=== PATIENT | female | born 1960 | race Caucasian/White ===

== ENCOUNTER → 2019-05-11 | Outpatient (CLI) | payer OTHER ==
[2019-05-11 10:22] LABS: HCT 41.9 % (34.0-46.0); MCH 30.7 pg (25.0-35.0); MCHC 33.5 g/dL (31.0-37.0); MCV 91.6 fL (80.0-100.0); Mean Platelet Volume 8.7; Platelet Count 215 k/uL (150-450); RBC 4.57 m/uL (3.80-5.40); RDW 13.5 % (11.5-15.5); WBC 8.8 k/uL (3.8-10.6)
[2019-05-11 16:50] LABS: African American GFR (CKD) 72.9 (60.0-200.0); Anion Gap 7.5 mmol/L (4.00-12.00); Carbon Dioxide 26.5 mmol/L (21.6-31.8); Chol/HDL Ratio 5.1; Potassium 4.6 mmol/L (3.5-5.5)
== END | disposition home or self-care (01) ==
LOC: LABWHC1 09:36
PROVIDERS: ATTEND Internal Medicine Cardiovascular Disease
DX: E78.2 Mixed hyperlipidemia (principal); I42.9 Cardiomyopathy, unspecified
CPT/HCPCS: 36415; 80051; 80061; 82565; 84450; 84460; 84520; 85027

== ENCOUNTER → 2019-05-13 | Day surgery (SDC) | payer OTHER ==
[2019-05-11 14:23] VITALS: BMI 40.5
[~2019-05-13] MED LIST: ADENOSINE 90 MG in SODIUM CHLORIDE 0.9% 60 ML IVP ONE; ALPRAZolam 0.25 MG TAB PO PRN; ALPRAZolam 0.5 MG TAB PO PRN; ASPIRIN 325 MG TAB PO ONE; ATORVASTATIN 40 MG TAB PO SCH; ATORVASTATIN 80 MG TAB PO ONE; ATORVASTATIN 80 MG TAB PO SCH; HEPARIN SODIUM 1,000 UN/ML (10ML VL) IV ONE; IOPAMIDOL-370 125ML BTL INJ ONE; LIDOCAINE 1% INJ 10MG/ML (20 ML MDV) SQ ONE; LISINOPRIL 2.5 MG TAB PO SCH; METOPROLOL SUCCINATE (ER) 25 MG TAB.ER.24H PO SCH; MIDAZOLAM (PF) 2 MG/2 ML VIAL IVP ONE; NITROGLYCERIN 1000MCG/10ML SYRINGE INTRACORON ONE; NITROGLYCERIN SL TABS 0.4 MG TAB SUBLINGUAL PRN; NON FORMULARY DRUG (Aspirin [Adult Low Dose Aspirin Ec] 81 MG) PO SCH; RX INFO: IV CONTRAST WAS GIVEN 1 EACH MISC MISCELLANE PRN; SODIUM CHLORIDE 0.9% 1,000 ML IV ONE; SODIUM CHLORIDE 0.9% 1,000 ML IV SCH; SODIUM CHLORIDE 0.9% 1,000 ML in EMPTY BAG 1 BAG IV ONE; fentaNYL (PF) 50 MCG/ML 2 ML AMP IVP ONE
[2019-05-13 07:04] VITALS: RESP 16; TEMP 97.8
--- NOTE | 2019-05-13 08:36 | CC ---
CARDIAC CATHETERIZATION REPORT INDICATION: Cardiomyopathy with abnormal stress test. PROCEDURE NOTE: After obtaining informed consent, left heart catheterization and coronary angiogram are performed via the right femoral artery using standard Val catheters. Patient tolerated the procedure well without any obvious immediate complications. Patient received moderate conscious sedation. Total sedation time was 12 minutes. A femoral angiogram was obtained and Angio-Seal will be deployed for hemostasis. FINDINGS: 1. HEMODYNAMICS: Left ventricular end-diastolic pressure is 24 mm. There is no significant gradient across the aortic valve. 2. LEFT VENTRICULOGRAM: Left ventriculogram is not performed. 3. ANGIOGRAPHIC DATA: Left Main Coronary Artery: Left main coronary artery is a normal-sized vessel and is free of stenosis. Divides into left anterior descending coronary artery and circumflex coronary artery. Circumflex coronary artery is a large dominant vessel and is free of significant stenosis. The LAD appears heavily calcified in its proximal part with irregular ectatic areas. This is new compared to a cardiac catheterization done in 2013 and there seems to be a 50% to 60% stenosis. Right coronary artery is a small caliber vessel, nondominant and is free of significant stenosis. CONCLUSIONS: Moderate to severe stenosis involving proximal left anterior descending artery a heavily calcified segment. PLAN: I am going to review the data with the on-call antisqueak chalker to see if the patient will have an FFR or have stent. We will optimize her medical therapy and optimally control the blood pressure. MMODL / IJN: [id number] /
--- NOTE | 2019-05-13 09:18 | PCN ---
PROCEDURE NOTE FRACTIONAL FLOW RESERVE MEASUREMENT Mrs. Ellis is a 58-year-old female, followed by Dr. Velásquez who is scheduled to undergo surgery underwent myocardial perfusion imaging that revealed evidence of inducible ischemia with impairment of left ventricular systolic function. She underwent cardiac catheterization, was found to have a calcified left anterior descending artery with moderate disease in the mid LAD. Because of the results of her stress test and her anatomy, recommendation was made regarding physiological measurement evaluation of her lesion. The procedure, the risks and the complications were discussed with the patient who is in full understanding and agreement. PROCEDURE: A 6-Albanian FR4 guiding catheter introduced in the system. After cannulating the left main a Doppler flow wire volcano was introduced, positioned distally. Subsequently, an iFR was calculated. Following that an FFR was calculated using adenosine infusion per protocol. Following that, catheter and sheath were removed. Hemostasis was obtained with deployment of an Angio-Seal. There was no immediate complication. Patient was returned to her room in stable condition. Of note, the patient received 5000 units of intravenous heparin. RESULT: Non-hemodynamic significant lesion in the mid LAD with an FFR of 84% and an iFR of 96%. RECOMMENDATION: Patient will be continued on her medical therapy. She will be further evaluated by Dr. Velásquez. Those findings and recommendations were discussed with the patient and her family and are in full understanding and agreement. DURATION OF PROCEDURE: 12 minutes. NARCISAL / LUCRETIAN: [id number] /
[2019-05-13 14:32] VITALS: BP 126/82; PULSE 76
== END | disposition home or self-care (01) ==
LOC: CATHCVL 06:19
PROVIDERS: ATTEND Internal Medicine Cardiovascular Disease
DX: I25.10 Atherosclerotic heart disease of native coronary artery without angina pectoris (principal); I25.84 Coronary atherosclerosis due to calcified coronary lesion; I42.9 Cardiomyopathy, unspecified; I10 Essential (primary) hypertension; E11.9 Type 2 diabetes mellitus without complications; E78.5 Hyperlipidemia, unspecified; Z79.82 Long term (current) use of aspirin; Z79.899 Other long term (current) drug therapy; Z87.891 Personal history of nicotine dependence; Z82.49 Family history of ischemic heart disease and other diseases of the circulatory system
CPT/HCPCS: 93571; 93458; C1760; C1887; C1894; C1769; J2001; J3010; J1644; J0153; Q9967; J2250

== ENCOUNTER → 2019-11-08 | Outpatient (CLI) | payer OTHER ==
[2019-11-08 16:10] LABS: HCT 44.9 % (34.0-46.0); HGB 14.7 gm/dL (11.4-16.0); MCH 29.6 pg (25.0-35.0); MCHC 32.7 g/dL (31.0-37.0); MCV 90.6 fL (80.0-100.0); Mean Platelet Volume 9.6; Platelet Count 232 k/uL (150-450); RBC 4.95 m/uL (3.80-5.40); RDW 13.3 % (11.5-15.5); WBC 12.7 k/uL (3.8-10.6)
[2019-11-08 16:16] LABS: African American GFR (CKD) >90 (>60 ml/min/1.73 sqM); Anion Gap 9 mmol/L; Blood Urea Nitrogen 18 mg/dL (7-17); Carbon Dioxide 25 mmol/L (22-30); Chloride 103 mmol/L (98-107); Non-African American GFR(CKD) 79 (>60 ml/min/1.73 sqM); Potassium 4.4 mmol/L (3.5-5.1); Sodium 137 mmol/L (137-145)
== END | disposition home or self-care (01) ==
LOC: LABPAT 14:57
PROVIDERS: ATTEND Internal Medicine Cardiovascular Disease
DX: Z01.818 Encounter for other preprocedural examination (principal); I42.0 Dilated cardiomyopathy
CPT/HCPCS: 80051; 82565; 84520; 85027

== ENCOUNTER 2019-11-24 06:04 | Day surgery (SDC) | payer OTHER ==
[2019-11-23 11:43] VITALS: BMI 37.5
[~2019-11-24 06:04] MED LIST changes: -ADENOSINE 90 MG in SODIUM CHLORIDE 0.9% 60 ML IVP ONE; -ALPRAZolam 0.25 MG TAB PO PRN; -ALPRAZolam 0.5 MG TAB PO PRN; -ASPIRIN 325 MG TAB PO ONE; -ATORVASTATIN 40 MG TAB PO SCH; -ATORVASTATIN 80 MG TAB PO ONE; -ATORVASTATIN 80 MG TAB PO SCH; -HEPARIN SODIUM 1,000 UN/ML (10ML VL) IV ONE; -IOPAMIDOL-370 125ML BTL INJ ONE; -LIDOCAINE 1% INJ 10MG/ML (20 ML MDV) SQ ONE; -LISINOPRIL 2.5 MG TAB PO SCH; -METOPROLOL SUCCINATE (ER) 25 MG TAB.ER.24H PO SCH; -MIDAZOLAM (PF) 2 MG/2 ML VIAL IVP ONE; -NITROGLYCERIN 1000MCG/10ML SYRINGE INTRACORON ONE; -NITROGLYCERIN SL TABS 0.4 MG TAB SUBLINGUAL PRN; -NON FORMULARY DRUG (Aspirin [Adult Low Dose Aspirin Ec] 81 MG) PO SCH; -RX INFO: IV CONTRAST WAS GIVEN 1 EACH MISC MISCELLANE PRN; -SODIUM CHLORIDE 0.9% 1,000 ML IV ONE; -SODIUM CHLORIDE 0.9% 1,000 ML in EMPTY BAG 1 BAG IV ONE; -fentaNYL (PF) 50 MCG/ML 2 ML AMP IVP ONE
[2019-11-24 06:22] VITALS: TEMP 98
[2019-11-24 06:34] LABS: Glucose,Whole Blood 179 mg/dL (75-99)
[2019-11-24] MEDS ORDERED: MIDAZOLAM 2 MG/2 ML VIAL IVP ONE (07:00)
[2019-11-24] MEDS ORDERED: ceFAZolin 1,000 MG in SODIUM CHLORIDE 0.9% IRRIGATIO 250 ML IRRIGATION ONE (07:00)
[2019-11-24] MEDS ORDERED: KETAMINE 10 MG/ML 20 ML VIAL ONE (07:19)
[2019-11-24] MEDS ORDERED: .MORPHINE SULFATE (INJ) 10 MG/ML SYRINGE ONE (07:19)
[2019-11-24] MEDS ORDERED: fentaNYL (PF) 50 MCG/ML 2 ML AMP ONE (07:19)
[2019-11-24] MEDS ORDERED: MIDAZOLAM 2 MG/2 ML VIAL ONE (07:19)
[2019-11-24] MEDS ORDERED: ONDANSETRON 4 MG/2 ML VIAL ONE (07:19)
[2019-11-24] MEDS ORDERED: IOPAMIDOL-250 50ML BTL IV ONE (07:45)
[2019-11-24] MEDS ORDERED: LIDOCAINE 1% INJ 10MG/ML (20 ML MDV) SQ ONE ×2 (08:07→08:18)
[2019-11-24] MEDS ORDERED: ACETAMINOPHEN TAB 325 MG TAB PO PRN (09:37)
--- NOTE | 2019-11-24 09:42 | P.DS ---
Providers Attending physician: Romie Barajas Primary care physician: [place] [facility] Course: Discharge summary 59-year-old female who underwent single-chamber ICD for primary prevention of sudden cardiac . She will be discharged home at 2:30 PM if her chest x-ray 12 known is within normal limits and she'll receive antibiotics at 2 PM and his hemodynamic stable. She'll be seen in the office in 5 days Patient Condition at Discharge: Stable Plan - Discharge Summary Discharge Rx Participant: No New Discharge Prescriptions: Continue Aspirin [Adult Low Dose Aspirin EC] 81 mg PO DAILY Lisinopril [Zestril] 2.5 mg PO DAILY Atorvastatin [Lipitor] 40 mg PO HS #90 tablet Metoprolol Succinate (ER) [Toprol XL] 25 mg PO DAILY #90 tab metFORMIN HCL [Glucophage] 500 mg PO AC-TID Discharge Medication List Aspirin [Adult Low Dose Aspirin EC] 81 mg PO DAILY 05/11/19 [History] Lisinopril [Zestril] 2.5 mg PO DAILY 05/11/19 [History] Atorvastatin [Lipitor] 40 mg PO HS #90 tablet 05/13/19 [Rx] Metoprolol Succinate (ER) [Toprol XL] 25 mg PO DAILY #90 tab 05/13/19 [Rx] metFORMIN HCL [Glucophage] 500 mg PO AC-TID 11/23/19 [History] Follow up Appointment(s)/Referral(s): Niall Velásquez MD [STAFF PHYSICIAN] - 1 Week (X-ray 12 noon Antibiotics at 2 PM Afebrile be stable and exit is okay then discharged back to 30 p.m. [facility] Follow-up with Dr. Nevarez as previously scheduled) Patient Instructions/Handouts: Implantable Cardioverter Defibrillator (DC) Discharge Disposition: HOME SELF-CARE
[2019-11-24 09:47] VITALS: RESP 16
--- NOTE | 2019-11-24 10:09 | CE ---
CARDIAC ELECTROPHYSIOLOGY REPORT This is a 59-year-old female patient of Dr. Velásquez who has severe nonischemic cardiomyopathy which is not improved despite medical treatment for greater than 3 months. She has CHF class 2 and a narrow QRS. She was brought in for single-chamber ICD implantation, primary prevention. The patient is brought to the EP lab in a fasting state. Written informed consent was obtained prior to the procedure. The left shoulder area was prepped and draped as per protocol and 1% lidocaine was used for local anesthesia. A 4 cm incision was made parallel to the deltopectoral groove, about 1.5 cm medial to it. The incision was carried down to the level of the pectoralis muscle. A subfascial pocket was made. Hemostasis was assured. The left axillary vein was accessed at a single point under fluoroscopy and via appropriately-sized introducer sheaths, a single lead was positioned in the right ventricle just above the RV apex and screwed in. R-waves were 13.5 mV, pacing impedance 1375 ohms, pacing threshold 1 V at 0.5 milliseconds, high- voltage impedance 90 ohms. This was secured to the underlying pectoralis muscle and connected to the generator (Ellipse VR [id number], serial #[id number]. The lead and generator were then placed in subfascial pocket. The device was secured to the muscle and the wound was closed in 3 layers and dressed per protocol. DFT testing was deferred at this point. The implanted lead was an [employer], model number [id number], 65 cm in length and serial #[id number]. Patient tolerated the procedure well without any acute complications and it was programmed according to the [employer] programming with backup VVI pacing at 40 beats per minute. No changes in medications. PLAN: Intravenous antibiotics at 2 p.m., chest x-ray at 12 noon and if stable, then home today and follow up in the office in 5 days. LEFT UPPER EXTREMITY VENOGRAM: The 15 mL IV dye was injected into the left upper extremity and the left axillary and subclavian veins were well opacified and were noted to be widely patent. MMODL / IJN: [id number] /
[2019-11-24] MEDS ORDERED: ACETAMINOPHEN IV (For NPO) 1,000 MG in EMPTY BAG 1 BAG IVPB ONE (11:00)
[2019-11-24] MEDS ORDERED: LACTATED RINGERS 1,000 ML IV SCH (12:03)
--- NOTE | 2019-11-24 12:18 | XR ---
EXAMINATION TYPE: XR chest 1V portable DATE OF EXAM: 11/24/2019 COMPARISON: NONE HISTORY: Implantable cardiac device. Postoperative exam. TECHNIQUE: Single frontal view of the chest is obtained. FINDINGS: Angle lead left-sided cardiac device has a ventricular lead. No postprocedural pneumothora x seen on this single view pericardial mediastinal silhouette is enlarged. Soft tissues partially sec ure the lower lungs. No sizable pleural effusion. IMPRESSION: Single lead left-sided cardiac device with a single ventricular lead. No postprocedural pneumothorax seen.
[2019-11-24 14:35] VITALS: BP 104/59; PULSE 73
== END 2019-11-24 16:23 | disposition home or self-care (01) ==
LOC: CATHEP 06:04
PROVIDERS: ATTEND Internal Medicine Clinical Cardiac Electrophysiology
DX: I42.9 Cardiomyopathy, unspecified (principal); I25.10 Atherosclerotic heart disease of native coronary artery without angina pectoris; I11.0 Hypertensive heart disease with heart failure; I50.9 Heart failure, unspecified; E78.2 Mixed hyperlipidemia; E11.9 Type 2 diabetes mellitus without complications; Z87.891 Personal history of nicotine dependence; Z79.82 Long term (current) use of aspirin; Z79.84 Long term (current) use of oral hypoglycemic drugs; Z79.899 Other long term (current) drug therapy; Z90.710 Acquired absence of both cervix and uterus; Z98.890 Other specified postprocedural states; Z82.49 Family history of ischemic heart disease and other diseases of the circulatory system
CPT/HCPCS: 33249; 71045; C1892; C1769; C1722; C1777; J2250; J2270; J0690 ×2; J2405; J2001; J3010; Q9966

== ENCOUNTER → 2020-01-26 | Outpatient (CLI) | payer OTHER ==
[2020-01-26 15:13] LABS: HCT 42.6 % (34.0-46.0); HGB 13.5 gm/dL (11.4-16.0); MCH 29.1 pg (25.0-35.0); MCHC 31.8 g/dL (31.0-37.0); MCV 91.5 fL (80.0-100.0); Platelet Count 245 k/uL (150-450); RBC 4.65 m/uL (3.80-5.40); RDW 13.5 % (11.5-15.5); WBC 12.3 k/uL (3.8-10.6)
[2020-01-27 00:08] LABS: African American GFR (CKD) 72.4 (60.0-200.0); Anion Gap 9.6 mmol/L (4.00-12.00); Carbon Dioxide 28.4 mmol/L (21.6-31.8); Non-African American GFR(CKD) 62.5 (60.0-200.0); Potassium 4.2 mmol/L (3.5-5.5)
== END | disposition home or self-care (01) ==
LOC: LABWHC1 14:44
PROVIDERS: ATTEND Internal Medicine Cardiovascular Disease
DX: I50.22 Chronic systolic (congestive) heart failure (principal)
CPT/HCPCS: 36415; 80051; 82565; 83880; 84443; 84520; 85027

== ENCOUNTER → 2021-11-13 | Outpatient (CLI) | payer OTHER ==
[2021-11-14 00:04] LABS: Anion Gap 13.5 mmol/L (10.00-18.00); Carbon Dioxide 26.5 mmol/L (20.0-27.5); Potassium 4.3 mmol/L (3.5-5.5)
== END | disposition home or self-care (01) ==
LOC: LABWHC1 15:53
PROVIDERS: ATTEND Nurse Practitioner Family
DX: I25.10 Atherosclerotic heart disease of native coronary artery without angina pectoris (principal); I42.0 Dilated cardiomyopathy; I48.0 Paroxysmal atrial fibrillation; I50.22 Chronic systolic (congestive) heart failure
CPT/HCPCS: 36415; 80051; 83880

== ENCOUNTER 2022-01-07 16:07 | Emergency (ER) | payer OTHER ==
[2022-01-07 16:23] VITALS: RESP 18
--- NOTE | 2022-01-07 20:04 | ED ---
General Adult HPI - General Chief complaint: Recheck/Abnormal Lab/Rx Stated complaint: ABN labs Time Seen by Provider: 01/07/22 19:58 Source: patient, RN notes reviewed, old records reviewed Mode of arrival: ambulatory Limitations: no limitations - History of Present Illness Initial comments: This is a pleasant 61-year-old female that was sent to the emergency room by her primary care doctor for hemoglobin that was drawn today of 7.4. She did see her primary care doctor on Thursday last week when it was 7.7. She was hospitalized at [facility] for low hemoglobin and was given a blood transfusion of 1 unit. She states that she initially went to [facility] with numbness and tingling in her arms was diagnosed with a TIA and sent to [facility]. At that time they found that her hemoglobin was low with no evidence of source of GI bleeding. She did undergo a endoscopy and colonoscopy that were negative. She was discharged home to follow up with her primary care doctor. Patient denies any hematuria, hematochezia or hematemesis. She denies any abdominal pain. No shortness of breath. -: week(s) Severity scale (1-10): 0 Associated Symptoms: denies other symptoms Treatments Prior to Arrival: none - Related Data Home Medications Medication Instructions Recorded Confirmed Aspirin [Adult Low Dose Aspirin EC] 81 mg PO DAILY 05/11/19 01/07/22 lisinopriL [Zestril] 2.5 mg PO DIRECTED 05/11/19 01/07/22 metFORMIN HCL [Glucophage] 1,000 mg PO BID 11/23/19 01/07/22 Albuterol Inhaler [Ventolin Hfa 2 puff INHALATION RT-QID PRN 01/07/22 01/07/22 Inhaler] Apixaban [Eliquis] 5 mg PO BID 01/07/22 01/07/22 Furosemide [Lasix] 40 mg PO DIRECTED 01/07/22 01/07/22 Metoprolol Succinate (ER) [Toprol 100 mg PO DAILY 01/07/22 01/07/22 Xl] Pantoprazole Sodium 40 mg PO BID 01/07/22 01/07/22 Potassium Chloride ER [K-Dur 20] 20 meq PO DIRECTED 01/07/22 01/07/22 glipiZIDE XL [Glucotrol Xl] 10 mg PO DAILY 01/07/22 01/07/22 metOLazone [Zaroxolyn] 2.5 mg PO DIRECTED 01/07/22 01/07/22 Previous Rx's Medication Instructions Recorded Atorvastatin [Lipitor] 40 mg PO HS #90 tablet 05/13/19 Allergies Allergy/AdvReac Type Severity Reaction Status Date / Time adhesive tape Allergy Rash/Hives Verified 01/07/22 20:40 Review of Systems ROS Statement: Those systems with pertinent positive or pertinent negative responses have been documented in the HPI. ROS Other: All systems not noted in ROS Statement are negative. Past Medical History Past Medical History: Asthma, Diabetes Mellitus, Hypertension Additional Past Medical History / Comment(s): migraines, irregular heartbeat, Seasonal asthma (no rx) . See Cardiology H & P. History of Any Multi-Drug Resistant Organisms: None Reported Past Surgical History: Appendectomy, Cholecystectomy, Heart Catheterization, Hernia Repair, Hysterectomy, Orthopedic Surgery Additional Past Surgical History / Comment(s): bunionectomy left foot, repair ACL Past Anesthesia/Blood Transfusion Reactions: No Reported Reaction Past Psychological History: No Psychological Hx Reported Smoking Status: Former smoker Past Alcohol Use History: Occasional Past Drug Use History: None Reported - Past Family History Father Family Medical History: Cancer Additional Family Medical History / Comment(s): colon Mother Family Medical History: Cancer Additional Family Medical History / Comment(s): breast General Exam Limitations: no limitations General appearance: alert, in no apparent distress Head exam: Present: atraumatic Eye exam: Present: normal appearance, other (Conjunctiva are pink). Absent: scleral icterus, conjunctival injection ENT exam: Present: normal exam, normal oropharynx, mucous membranes moist Neck exam: Present: full ROM. Absent: tenderness, meningismus Respiratory exam: Present: normal lung sounds bilaterally. Absent: respiratory distress, wheezes, rales, rhonchi, stridor, chest wall tenderness, accessory muscle use, decreased breath sounds Cardiovascular Exam: Present: regular rate GI/Abdominal exam: Present: soft. Absent: distended, tenderness Extremities exam: Present: full ROM, normal capillary refill, pedal edema (Trace bilateral). Absent: tenderness Back exam: Present: normal inspection, full ROM. Absent: tenderness, CVA tenderness (R), CVA tenderness (L), rash noted Neurological exam: Present: alert, oriented X3, normal gait Psychiatric exam: Present: normal affect, normal mood Skin exam: Present: warm, dry, normal color. Absent: cyanosis, diaphoretic, erythema, petechiae, pallor Course Vital Signs 01/07/22 01/07/22 01/07/22 16:21 20:56 21:35 Temperature 98.2 F 98.9 F Pulse Rate 96 89 Respiratory 18 18 18 Rate Blood Pressure 139/81 130/78 O2 Sat by Pulse 98 98 Oximetry Medical Decision Making - Medical Decision Making Hemoglobin is 8.0. Patient has denied hematochezia or hematemesis. No abdominal pain. Vital signs are stable. She will follow-up with her primary care doctor tomorrow for continuation of care. Patient is agreeable to disch arge. Case discussed with Dr. Roman - Lab Data Result diagrams: 01/07/22 20:32 01/07/22 20:32 Lab Results 01/07/22 01/07/22 01/07/22 Range/Units 20:32 20:32 20:32 WBC 10.3 (3.8-10.6) k/uL RBC 3.03 L (3.80-5.40) m/uL Hgb 8.0 L (11.4-16.0) gm/dL Hct 25.9 L (34.0-46.0) % MCV 85.4 (80.0-100.0) fL MCH 26.3 (25.0-35.0) pg MCHC 30.8 L (31.0-37.0) g/dL RDW 15.1 (11.5-15.5) % Plt Count 404 (150-450) k/uL MPV 8.1 Neutrophils % 65 % Lymphocytes % 25 % Monocytes % 5 % Eosinophils % 3 % Basophils % 1 % Neutrophils # 6.7 (1.3-7.7) k/uL Lymphocytes # 2.6 (1.0-4.8) k/uL Monocytes # 0.5 (0-1.0) k/uL Eosinophils # 0.3 (0-0.7) k/uL Basophils # 0.1 (0-0.2) k/uL Hypochromasia Slight PT (9.0-12.0) sec INR (<1.2) APTT (22.0-30.0) sec Sodium 139 (137-145) mmol/L Potassium 4.6 (3.5-5.1) mmol/L Chloride 106 (98-107) mmol/L Carbon Dioxide 23 (22-30) mmol/L Anion Gap 10 mmol/L BUN 16 (7-17) mg/dL Creatinine 0.97 (0.52-1.04) mg/dL Est GFR (CKD-EPI)AfAm 74 (>60 ml/min/1.73 sqM) Est GFR (CKD-EPI)NonAf 64 (>60 ml/min/1.73 sqM) Glucose 130 H (74-99) mg/dL Calcium 8.7 (8.4-10.2) mg/dL Magnesium 1.8 (1.6-2.3) mg/dL Blood Type A Positive Blood Type Recheck No Previous Record Bld Type Recheck Status CABO Indicated Antibody Screen NEGATIVE Spec Expiration Date 01/10/2022 - 233101/07/22 Range/Units 20:32 WBC (3.8-10.6) k/uL RBC (3.80-5.40) m/uL Hgb (11.4-16.0) gm/dL Hct (34.0-46.0) % MCV (80.0-100.0) fL MCH (25.0-35.0) pg MCHC (31.0-37.0) g/dL RDW (11.5-15.5) % Plt Count (150-450) k/uL MPV Neutrophils % % Lymphocytes % % Monocytes % % Eosinophils % % Basophils % % Neutrophils # (1.3-7.7) k/uL Lymphocytes # (1.0-4.8) k/uL Monocytes # (0-1.0) k/uL Eosinophils # (0-0.7) k/uL Basophils # (0-0.2) k/uL Hypochromasia PT 10.0 (9.0-12.0) sec INR 0.9 (<1.2) APTT 25.4 (22.0-30.0) sec Sodium (137-145) mmol/L Potassium (3.5-5.1) mmol/L Chloride (98-107) mmol/L Carbon Dioxide (22-30) mmol/L Anion Gap mmol/L BUN (7-17) mg/dL Creatinine (0.52-1.04) mg/dL Est GFR (CKD-EPI)AfAm (>60 ml/min/1.73 sqM) Est GFR (CKD-EPI)NonAf (>60 ml/min/1.73 sqM) Glucose (74-99) mg/dL Calcium (8.4-10.2) mg/dL Magnesium (1.6-2.3) mg/dL Blood Type Blood Type Recheck Bld Type Recheck Status Antibody Screen Spec Expiration Date Disposition Clinical Impression: Anemia Disposition: HOME SELF-CARE Condition: Good Instructions (If sedation given, give patient instructions): Anemia (ED) Additional Instructions: Please contact your primary care doctor tomorrow morning and let her know your hemoglobin is 8.0. Return to the emergency room with any new or concerning symptoms including abdominal pain, rectal bleeding, vomiting blood or blood in your urine. Is patient prescribed a controlled substance at d/c from ED?: No Referrals: Nonstaff,Physician [REFERRING] - 1-2 days Time of Disposition: 21:12
[2022-01-07 20:47] LABS: Basophils # (A) 0.1 k/uL (0-0.2); Basophils % (A) 1 %; Eosinophils # (A) 0.3 k/uL (0-0.7); Eosinophils % (A) 3 %; HCT 25.9 % (34.0-46.0); Hypochromasia Slight; Lymphocytes # (A) 2.6 k/uL (1.0-4.8); Lymphocytes % (A) 25 %; MCH 26.3 pg (25.0-35.0); MCHC 30.8 g/dL (31.0-37.0); MCV 85.4 fL (80.0-100.0); Mean Platelet Volume 8.1; Monocytes # (A) 0.5 k/uL (0-1.0); Monocytes % (A) 5 %; Neutrophils # (A) 6.7 k/uL (1.3-7.7); Neutrophils % (A) 65 %; Platelet Count 404 k/uL (150-450); RBC 3.03 m/uL (3.80-5.40); RDW 15.1 % (11.5-15.5); WBC 10.3 k/uL (3.8-10.6)
[2022-01-07 20:56] LABS: INR 0.9 (<1.2); Partial Thromboplastin Time 25.4 sec (22.0-30.0)
[2022-01-07 21:00] LABS: Calcium 8.7 mg/dL (8.4-10.2); Magnesium 1.8 mg/dL (1.6-2.3); Potassium 4.6 mmol/L (3.5-5.1)
[2022-01-07 21:36] VITALS: BP 130/78; PULSE 89; TEMP 98.9
== END 2022-01-07 21:35 | disposition home or self-care (01) ==
LOC: EC 16:07
DX: D64.9 Anemia, unspecified (principal); I10 Essential (primary) hypertension; J45.909 Unspecified asthma, uncomplicated; E11.9 Type 2 diabetes mellitus without complications; Z87.891 Personal history of nicotine dependence; Z79.899 Other long term (current) drug therapy; Z91.09 Other allergy status, other than to drugs and biological substances; Z79.84 Long term (current) use of oral hypoglycemic drugs; Z79.82 Long term (current) use of aspirin
CPT/HCPCS: 36415; 80048; 83735; 85025; 85610; 85730; 86850; 86900; 86901; 99283

== ENCOUNTER → 2022-03-06 | Outpatient (CLI) | payer OTHER ==
[2022-03-07 01:09] LABS: HGB 11.3 g/dL (12.0-15.0); MCH 27.6 pg (27.0-32.0); MCHC 29.7 g/dL (32.0-37.0); MCV 92.9 fL (80.0-97.0); Mean Platelet Volume 12.2 fL (9.5-12.2); NRBC Per 100 WBC 0 /100 WBCS (0.0-0.0); Platelet Count 251 X 10*3/uL (140-440); RBC 4.09 X 10*6/uL (4.10-5.20); RDW 18.4 % (11.5-14.5); WBC 9.07 X 10*3/uL (4.50-10.00)
[2022-03-07 03:13] LABS: African American GFR (CKD) 71.4 (60.0-200.0); Anion Gap 12.8 mmol/L (10.00-18.00); BUN/Creat Ratio 14.9 Ratio (12.00-20.00); Blood Urea Nitrogen 14.9 mg/dL (9.0-27.0); Calcium 9.5 mg/dL (8.7-10.3); Carbon Dioxide 25.2 mmol/L (20.0-27.5); Non-African American GFR(CKD) 61.6 (60.0-200.0); Potassium 4.4 mmol/L (3.5-5.5)
== END | disposition home or self-care (01) ==
LOC: LABWHC1 15:02
PROVIDERS: ATTEND Internal Medicine Interventional Cardiology
DX: R06.2 Wheezing (principal)
CPT/HCPCS: 36415; 80048; 83880; 85027

== ENCOUNTER → 2022-04-01 | Outpatient (CLI) | payer OTHER ==
[2022-04-01 18:24] LABS: African American GFR (CKD) 60.3 (60.0-200.0); Anion Gap 14.9 mmol/L (10.00-18.00); Blood Urea Nitrogen 19.6 mg/dL (9.0-27.0); Carbon Dioxide 27.4 mmol/L (20.0-27.5); Potassium 3.7 mmol/L (3.5-5.5)
== END | disposition home or self-care (01) ==
LOC: LABWHC1 10:52
PROVIDERS: ATTEND Internal Medicine Interventional Cardiology
DX: I50.22 Chronic systolic (congestive) heart failure (principal)
CPT/HCPCS: 36415; 80051; 82565; 83880; 84520

== ENCOUNTER 2022-04-24 10:45 | Day surgery (SDC) | payer OTHER ==
[2022-04-23 10:07] VITALS: BMI 38.9
[2022-04-24] MEDS ORDERED: SODIUM CHLORIDE 0.9% 500 ML 500 ML IV ONE (11:30)
[2022-04-24 11:45] VITALS: TEMP 98.6
[2022-04-24] MEDS ORDERED: fentaNYL (PF) 50 MCG/ML 2 ML AMP ONE (11:54)
[2022-04-24] MEDS ORDERED: BENZOCAINE SPRAY 1 CAN TOPICAL ONE (12:01)
[2022-04-24] MEDS ORDERED: MIDAZOLAM 2 MG/2 ML VIAL IV ONE (12:02)
[2022-04-24] MEDS ORDERED: fentaNYL (PF) 50 MCG/ML 2 ML AMP IV ONE (12:02)
[2022-04-24 14:09] VITALS: BP 113/80; PULSE 84; RESP 16
--- NOTE | 2022-04-24 22:33 | HP ---
HISTORY AND PHYSICAL INDICATIONS: Mitral regurgitation. PROCEDURE NOTE: After obtaining informed consent, transesophageal echocardiogram is performed in left lateral position using an Omniplane probe. Local and IV sedation were obtained using 2 mg of Versed and 25 mcg of fentanyl. The patient tolerated the procedure well without any obvious immediate complications. The patient received moderate conscious sedation. Total sedation time was 10 minutes. FINDINGS: 1. Mitral valve appears anatomically normal. There is kvmfvsua-jy-esyigj posteriorly directed mitral regurgitation noted. This is secondary to dilatation of the mitral annulus. 2. Left atrium appears mildly enlarged. Right atrium and right ventricle seen within normal limits. 3. Left ventricle appears dilated with diffuse global hypokinesis and severe LV systolic dysfunction with an ejection fraction of 30%. Aortic valve is a 3-leaflet valve. There is no evidence of mitral stenosis or regurgitation. 4. Aortic root measures within normal limits. There is mild tricuspid regurgitation noted. Interatrial septum, there is no evidence of lpkyr-on-gwyh shunt by agitated saline contrast study. There is lqlc-tz-freqw shunt noted probably secondary to a small atrial septal defect. CONCLUSION: 1. Severe left ventricular systolic dysfunction. 2. Zkwaziwn-kc-evpveq posteriorly directed mitral regurgitation secondary to dilated mitral annulus. MMODL / IJN: [id number] /
== END 2022-04-24 13:15 | disposition home or self-care (01) ==
LOC: CATHCVL 10:45
PROVIDERS: ATTEND Internal Medicine Cardiovascular Disease
DX: I34.0 Nonrheumatic mitral (valve) insufficiency (principal); I25.10 Atherosclerotic heart disease of native coronary artery without angina pectoris; I11.0 Hypertensive heart disease with heart failure; I50.22 Chronic systolic (congestive) heart failure; I42.0 Dilated cardiomyopathy; I47.2 Ventricular tachycardia; R94.39 Abnormal result of other cardiovascular function study; E11.9 Type 2 diabetes mellitus without complications; Z82.49 Family history of ischemic heart disease and other diseases of the circulatory system; Z87.891 Personal history of nicotine dependence; M19.90 Unspecified osteoarthritis, unspecified site; J45.909 Unspecified asthma, uncomplicated; Z79.01 Long term (current) use of anticoagulants; Z79.84 Long term (current) use of oral hypoglycemic drugs; Z79.82 Long term (current) use of aspirin; Z79.899 Other long term (current) drug therapy
CPT/HCPCS: 93312; 93320; 93325; J2250; J3010

== ENCOUNTER → 2022-08-13 | Outpatient (CLI) | payer OTHER ==
[2022-08-13 17:02] LABS: African American GFR (CKD) 57.3 (60.0-200.0); Anion Gap 13.9 mmol/L (10.00-18.00); BUN/Creat Ratio 13.83 Ratio (12.00-20.00); Blood Urea Nitrogen 16.6 mg/dL (9.0-27.0); Calcium 8.9 mg/dL (8.7-10.3); Carbon Dioxide 28.1 mmol/L (20.0-27.5); Magnesium 1.4 mg/dL (1.5-2.4); Non-African American GFR(CKD) 49.4 (60.0-200.0); Potassium 3.5 mmol/L (3.5-5.5)
== END | disposition home or self-care (01) ==
LOC: LABWHC1 10:07
PROVIDERS: ATTEND Nurse Practitioner Adult Health
DX: I47.20 Ventricular tachycardia, unspecified (principal)
CPT/HCPCS: 36415; 80048; 83735

== ENCOUNTER → 2022-09-12 | Outpatient (CLI) | payer OTHER ==
--- NOTE | 2022-09-12 10:34 | CTL ---
EXAMINATION TYPE: CT Low Dose Lung DATE OF EXAM ORDERED: 09/12/2022 HISTORY: . Lung cancer screening CT DLP: [address] CTDI: 3.2 mGy Automated exposure control for dose reduction was used. SCREENING VISIT: COMPARISON: TECHNIQUE: Low dose computed tomography scan was performed through the chest at 1 mm thick sections a nd reconstructed images in multiple planes at 1 mm and [address] DIAGNOSTIC QUALITY: Limited, but interpretable FINDINGS: Exam is limited with no sizable pulmonary nodules identified. There is no evidence of focal pneumonia, pleural effusion, or pneumothorax. No overt failure. There i s no pleural thickening or calcifications. Cardiac device noted in the left. Structures of the mediastinum demonstrate dense coronary artery calcification. Aorta normal caliber m ild atherosclerotic changes. Hypertrophic and degenerative changes of the spine. IMPRESSION: 1. No sizable pulmonary nodules. 2. Dense coronary artery calcification correlate clinically. CT LUNG RAD AND CT CHEST RECOMMENDATION: Lung-Rad 1 Negative: Continue annual screening with LDCT in 12 months. S Modifier (other clinically significant findings): S
== END | disposition home or self-care (01) ==
LOC: RADCTMAIN 09:23
PROVIDERS: ATTEND Family Medicine
DX: Z12.2 Encounter for screening for malignant neoplasm of respiratory organs (principal); I25.10 Atherosclerotic heart disease of native coronary artery without angina pectoris; Z87.891 Personal history of nicotine dependence
CPT/HCPCS: 71271

== ENCOUNTER → 2022-09-24 | Outpatient (CLI) | payer OTHER ==
[2022-09-24 22:52] LABS: African American GFR (CKD) 26.9 (60.0-200.0); Anion Gap 17.1 mmol/L (10.00-18.00); Carbon Dioxide 28.5 mmol/L (20.0-27.5); Non-African American GFR(CKD) 23.2 (60.0-200.0)
== END | disposition home or self-care (01) ==
LOC: LABWHC1 15:12
PROVIDERS: ATTEND Internal Medicine Cardiovascular Disease
DX: I50.22 Chronic systolic (congestive) heart failure (principal)
CPT/HCPCS: 36415; 80051; 82565; 83880; 84520

== ENCOUNTER 2022-11-14 13:26 | Emergency (ER) | payer OTHER ==
[2022-11-14 13:32] VITALS: RESP 18; TEMP 98.1
[2022-11-14] MEDS ORDERED: SODIUM CHLORIDE 0.9% 1,000 ML IV STA (13:47)
--- NOTE | 2022-11-14 13:53 | ED ---
General Adult HPI - General Chief complaint: Recheck/Abnormal Lab/Rx Stated complaint: Hyperglycemia Time Seen by Provider: 11/14/22 13:38 Source: patient, RN notes reviewed Mode of arrival: ambulatory Limitations: no limitations - History of Present Illness Initial comments: Patient is a pleasant 62-year-old female presenting to the emergency department with concerns for hyperglycemia. Onset of symptoms was around 3 days ago. Patient does have history of type 2 diabetes and has been on oral medication. Patient was just started on insulin and just started this today. Blood sugar has been over 500 intermittently over the past 3 days. Blood sugar did go down to 3:30 this morning however was over 500 again prior to arrival. Patient has polyuria and polydipsia. - Related Data Home Medications Medication Instructions Recorded Confirmed Aspirin [Adult Low Dose Aspirin EC] 81 mg PO DAILY 05/11/19 11/14/22 Albuterol Inhaler [Ventolin Hfa 2 puff INHALATION RT-QID PRN 01/07/22 11/14/22 Inhaler] Apixaban [Eliquis] 5 mg PO BID 01/07/22 11/14/22 Furosemide [Lasix] 40 mg PO DAILY 01/07/22 11/14/22 Metoprolol Succinate (ER) [Toprol 100 mg PO BID-W/MEALS 01/07/22 11/14/22 Xl] Pantoprazole Sodium 40 mg PO BID-W/MEALS 01/07/22 11/14/22 glipiZIDE XL [Glucotrol Xl] 10 mg PO DAILY 01/07/22 11/14/22 Ascorbic Acid [Vitamin C] 500 mg PO DAILY 04/23/22 11/14/22 Ferrous Sulfate [Feosol] 325 mg PO DAILY 04/23/22 11/14/22 Potassium Chloride [Potassium 5 meq PO DAILY 04/23/22 11/14/22 Chloride ER] Empagliflozin [Jardiance] 10 mg PO DAILY 11/14/22 11/14/22 Insulin Glargine,Hum.rec.anlog 10 units SQ DAILY 11/14/22 11/14/22 [Clay Garcia] Magnesium Oxide [Mag-Ox] 400 mg PO BID-W/MEALS 11/14/22 11/14/22 Vitamin B Complex 1 cap PO DAILY 11/14/22 11/14/22 lisinopriL [Zestril] 2.5 mg PO DAILY 11/14/22 11/14/22 metOLazone [Zaroxolyn] 5 mg PO DAILY 11/14/22 11/14/22 Previous Rx's Medication Instructions Recorded Atorvastatin [Lipitor] 40 mg PO HS #90 tablet 05/13/19 Allergies Allergy/AdvReac Type Severity Reaction Status Date / Time adhesive tape Allergy Rash/Hives Verified 11/14/22 14:33 Review of Systems ROS Statement: Those systems with pertinent positive or pertinent negative responses have been documented in the HPI. ROS Other: All systems not noted in ROS Statement are negative. Constitutional: Denies: fever Eyes: Denies: eye pain ENT: Denies: ear pain Respiratory: Denies: cough Cardiovascular: Denies: chest pain Endocrine: Reports: fatigue, polydipsia, polyuria Gastrointestinal: Denies: abdominal pain, nausea, vomiting Genitourinary: Denies: dysuria Musculoskeletal: Denies: back pain Skin: Denies: rash Neurological: Denies: weakness Past Medical History Past Medical History: Asthma, Diabetes Mellitus, Hypertension Additional Past Medical History / Comment(s): See Dr Velásquez's H&P. Hx questionable GI Bleed , low hemoglobin, had blood transfusion, had Iron Infusion. Continues to follow with GI Dr to determine source of bleeding. Migraines, irregular heartbeat, Seasonal Asthma. History of Any Multi-Drug Resistant Organisms: None Reported Past Surgical History: AICD, Appendectomy, Cholecystectomy, Heart Catheterization, Hernia Repair, Hysterectomy, Orthopedic Surgery Additional Past Surgical History / Comment(s): Bunionectomy on left foot, left ACL repair. Past Anesthesia/Blood Transfusion Reactions: No Reported Reaction Additional Past Anesthesia/Blood Transfusion Reaction / Comment(s): Has received blood with no reaction. Type of Cardiac Device: AICD Device Placement Date:: 11/2019 Past Psychological History: Anxiety Smoking Status: Former smoker Past Alcohol Use History: Occasional Past Drug Use History: None Reported - Past Family History Father Family Medical History: Cancer Additional Family Medical History / Comment(s): Colon cancer. Mother Family Medical History: Cancer Additional Family Medical History / Comment(s): Breast cancer. General Exam Limitations: no limitations General appearance: alert, in no apparent distress Head exam: Present: normocephalic Eye exam: Present: normal appearance ENT exam: Present: normal oropharynx Neck exam: Present: normal inspection Respiratory exam: Present: normal lung sounds bilaterally Cardiovascular Exam: Present: regular rate, normal rhythm GI/Abdominal exam: Present: soft. Absent: tenderness Extremities exam: Present: normal inspection. Absent: pedal edema, calf tenderness Neurological exam: Present: alert Psychiatric exam: Present: normal affect, normal mood Skin exam: Present: normal color Course Vital Signs 11/14/22 11/14/22 11/14/22 13:28 14:57 16:28 Temperature 98.1 F Pulse Rate 77 70 70 Respiratory 18 18 18 Rate Blood Pressure 93/64 104/70 90/60 O2 Sat by Pulse 99 98 99 Oximetry 11/14/22 17:20 Temperature Pulse Rate 92 Respiratory 18 Rate Blood Pressure 92/62 O2 Sat by Pulse 97 Oximetry EKG Findings - EKG Results: EKG: interpreted by ERMD (Nonspecific T waves.), sinus rhythm, normal axis, normal QRS Medical Decision Making - Medical Decision Making Was pt. sent in by a medical professional or institution (, PA, TAPE DUPLICATOR, urgent care, hospital, or prison...) When possible be specific @ -No Did you speak to anyone other than the patient for history (EMS, parent, family, police, friend...)? What history was obtained from this source @ -No Did you review nursing and triage notes (agree or disagree)? Why? @ -I reviewed and agree with nursing and triage notes Were old charts reviewed (outside hosp., previous admission, EMS record, old EKG, old radiological studies, urgent care reports/EKG's, prison records)? Report findings @ -No old charts were reviewed Differential Diagnosis (chest pain, altered mental status, abdominal pain women, abdominal pain men, vaginal bleeding, weakness, fever, dyspnea, syncope, headache, dizziness, GI bleed, back pain, seizure, CVA, palpatations, mental health)? @ -not applicable EKG interpreted by me (3pts min.). @ -As above X-rays interpreted by me (1pt min.). @ -Chest x-ray shows no acute process CT interpreted by me (1pt min.). @ -None done U/S interpreted by me (1pt. min.). @ -None done What testing was considered but not performed or refused? (CT, X-rays, U/S, jose cruz little)? Why? @ -None What meds were considered but not given or refused? Why? @ -None Did you discuss the management of the patient with other professionals (professionals i.e. , PA, TAPE DUPLICATOR, lab, RT, psych nurse, medical social worker, superintendent mechanical, teacher, administrative services officer, case management rn)? Give summary @ -No Was smoking cessation discussed for >3mins.? @ -No Was critical care preformed (if so, how long)? @ -No Were there social determinants of health that impacted care today? How? (Homelessness, low income, unemployed, alcoholism, drug addiction, transportation, low edu. Level, literacy, decrease access to med. care, nursing home, rehab)? @ -No Was there de-escalation of care discussed even if they declined (Discuss DNR or withdrawal of care, Hospice)? DNR status @ -No What co-morbidities impacted this encounter? (DM, HTN, Smoking, COPD, CAD, Cancer, CVA, ARF, Chemo, Hep., AIDS, mental health diagnosis, sleep apnea, morbid obesity)? @ -None Was patient admitted / discharged? Hospital course, mention meds given and route, prescriptions, significant lab abnormalities, going to OR and other pertinent info. @ -Blood sugar has improved to 250 with insulin and fluids. Patient has elevated BUN/creatinine however somewhat improved since September 24 testing. Patient is advised of results and need for follow-up. Undiagnosed new problem with uncertain prognosis? @ -No Drug Therapy requiring intensive monitoring for toxicity (Heparin, Nitro, Insulin, Cardizem)? @ -No Were any procedures done? @ -No Diagnosis/symptom? @ -Hyperglycemia Acute, or Chronic, or Acute on Chronic? @ -Acute Uncomplicated (without systemic symptoms) or Complicated (systemic symptoms)? @ -default Side effects of treatment? @ -No Exacerbation, Progression, or Severe Exacerbation? @ -No Poses a threat to life or bodily function? How? (Chest pain, USA, SD, pneumonia, PE, COPD, DKA, ARF, appy, cholecystitis, CVA, Diverticulitis, Homicidal, Suicidal, threat to staff... and all critical care pts) @ -No - Lab Data Result diagrams: 11/14/22 13:47 11/14/22 14:48 Lab Results 11/14/22 11/14/2211/14/23 Range/Units 13:47 14:26 14:48 WBC 7.9 (3.8-10.6) k/uL RBC 3.21 L (3.80-5.40) m/uL Hgb 9.8 L (11.4-16.0) gm/dL Hct 29.3 L (34.0-46.0) % MCV 91.2 (80.0-100.0) fL MCH 30.5 (25.0-35.0) pg MCHC 33.4 (31.0-37.0) g/dL RDW 15.4 (11.5-15.5) % Plt Count 309 (150-450) k/uL MPV 8.6 Neutrophils % 64 % Lymphocytes % 27 % Monocytes % 5 % Eosinophils % 2 % Basophils % 1 % Neutrophils # 5.0 (1.3-7.7) k/uL Lymphocytes # 2.1 (1.0-4.8) k/uL Monocytes # 0.4 (0-1.0) k/uL Eosinophils # 0.2 (0-0.7) k/uL Basophils # 0.0 (0-0.2) k/uL Sodium 133 L (137-145) mmol/L Potassium 3.9 (3.5-5.1) mmol/L Chloride 92 L (98-107) mmol/L Carbon Dioxide 28 (22-30) mmol/L Anion Gap 13 mmol/L BUN 48 H (7-17) mg/dL Creatinine 1.98 H (0.52-1.04) mg/dL Est GFR (CKD-EPI)AfAm 31 (>60 ml/min/1.73 sqM) Est GFR (CKD-EPI)NonAf 27 (>60 ml/min/1.73 sqM) Glucose 392 H (74-99) mg/dL POC Glucose (mg/dL) 372 H (70-110) mg/dL POC Glu Soft Boarder ID Yao estrada Calcium 8.7 (8.4-10.2) mg/dL Phosphorus 4.6 H (2.5-4.5) mg/dL Magnesium 2.9 H (1.6-2.3) mg/dL Total Bilirubin 0.4 (0.2-1.3) mg/dL AST 22 (14-36) U/L ALT 30 (4-34) U/L Alkaline Phosphatase 82 (38-126) U/L Total Protein 7.0 (6.3-8.2) g/dL Albumin 4.1 (3.5-5.0) g/dL Urine Color Urine Appearance (Clear) Urine pH (5.0-8.0) Ur Specific [place] (1.001-1.035) Urine Protein (Negative) Urine Glucose (UA) (Negative) Urine Ketones (Negative) Urine Blood (Negative) Urine Nitrite (Negative) Urine Bilirubin (Negative) Urine Urobilinogen (<2.0) mg/dL Ur Leukocyte Esterase (Negative) Acetone, Qual Negative (Negative) 11/14/22 11/14/22 11/14/22 Range/Units 14:48 15:50 17:17 WBC (3.8-10.6) k/uL RBC (3.80-5.40) m/uL Hgb (11.4-16.0) gm/dL Hct (34.0-46.0) % MCV (80.0-100.0) fL MCH (25.0-35.0) pg MCHC (31.0-37.0) g/dL RDW (11.5-15.5) % Plt Count (150-450) k/uL MPV Neutrophils % % Lymphocytes % % Monocytes % % Eosinophils % % Basophils % % Neutrophils # (1.3-7.7) k/uL Lymphocytes # (1.0-4.8) k/uL Monocytes # (0-1.0) k/uL Eosinophils # (0-0.7) k/uL Basophils # (0-0.2) k/uL Sodium (137-145) mmol/L Potassium (3.5-5.1) mmol/L Chloride (98-107) mmol/L Carbon Dioxide (22-30) mmol/L Anion Gap mmol/L BUN (7-17) mg/dL Creatinine (0.52-1.04) mg/dL Est GFR (CKD-EPI)AfAm (>60 ml/min/1.73 sqM) Est GFR (CKD-EPI)NonAf (>60 ml/min/1.73 sqM) Glucose (74-99) mg/dL POC Glucose (mg/dL) 323 H 251 H (70-110) mg/dL POC Glu Soft Boarder ID Yao estrada Jason Calcium (8.4-10.2) mg/dL Phosphorus (2.5-4.5) mg/dL Magnesium (1.6-2.3) mg/dL Total Bilirubin (0.2-1.3) mg/dL AST (14-36) U/L ALT (4-34) U/L Alkaline Phosphatase (38-126) U/L Total Protein (6.3-8.2) g/dL Albumin (3.5-5.0) g/dL Urine Color Colorless Urine Appearance Clear (Clear) Urine pH 5.5 (5.0-8.0) Ur Specific [place] 1.007 (1.001-1.035) Urine Protein Negative (Negative) Urine Glucose (UA) 4+ H (Negative) Urine Ketones Negative (Negative) Urine Blood Negative (Negative) Urine Nitrite Negative (Negative) Urine Bilirubin Negative (Negative) Urine Urobilinogen <2.0 (<2.0) mg/dL Ur Leukocyte Esterase Negative (Negative) Acetone, Qual (Negative) Disposition Clinical Impression: Hyperglycemia Disposition: HOME SELF-CARE Condition: Stable Instructions (If sedation given, give patient instructions): Diabetic Hyperglycemia (ED) Additional Instructions: Please do follow-up with primary care physician in the next day or 2 for recheck. Please also follow-up with her kidney doctor. Have them review your testing from today. Return for uncontrolled blood sugar, vomiting, pain, worsening symptoms or other concerns. Is patient prescribed a controlled substance at d/c from ED?: No Referrals: Eben Jeff MD [Primary Care Provider] - 1-2 days Time of Disposition: 17:29
[2022-11-14 14:23] LABS: Basophils % (A) 1 %; Eosinophils # (A) 0.2 k/uL (0-0.7); Eosinophils % (A) 2 %; HCT 29.3 % (34.0-46.0); HGB 9.8 gm/dL (11.4-16.0); Lymphocytes # (A) 2.1 k/uL (1.0-4.8); Lymphocytes % (A) 27 %; MCH 30.5 pg (25.0-35.0); MCHC 33.4 g/dL (31.0-37.0); MCV 91.2 fL (80.0-100.0); Mean Platelet Volume 8.6; Monocytes # (A) 0.4 k/uL (0-1.0); Monocytes % (A) 5 %; Neutrophils % (A) 64 %; Platelet Count 309 k/uL (150-450); RBC 3.21 m/uL (3.80-5.40); RDW 15.4 % (11.5-15.5); WBC 7.9 k/uL (3.8-10.6)
--- NOTE | 2022-11-14 14:24 | XR ---
EXAMINATION TYPE: XR chest 2V DATE OF EXAM: 11/14/2022 COMPARISON: 11/24/2019 TECHNIQUE: PA and lateral views submitted. HISTORY: Weakness FINDINGS: The lungs are clear and there is no pneumothorax, pleural effusion, or focal pneumonia. Heart size mildly prominent but stable and no overt failure. Osseous structures demonstrate hypertrophic and deg enerative changes of the spine. Cardiac device is noted. Bilateral pleural-based thickening similar t o prior exam. IMPRESSION: 1. No acute process.
[2022-11-14 14:27] LABS: Glucose,Whole Blood 372 mg/dL (70-110)
[2022-11-14 14:43] LABS: ALT 30 U/L (4-34); AST 22 U/L (14-36); African American GFR (CKD) 31 (>60 ml/min/1.73 sqM); Albumin 4.1 g/dL (3.5-5.0); Alkaline Phosphatase 82 U/L (38-126); Anion Gap 13 mmol/L; Blood Urea Nitrogen 48 mg/dL (7-17); Calcium 8.7 mg/dL (8.4-10.2); Carbon Dioxide 28 mmol/L (22-30); Chloride 92 mmol/L (98-107); Glucose 392 mg/dL (74-99); Magnesium 2.9 mg/dL (1.6-2.3); Non-African American GFR(CKD) 27 (>60 ml/min/1.73 sqM); Phosphorus 4.6 mg/dL (2.5-4.5); Potassium 3.9 mmol/L (3.5-5.1); Sodium 133 mmol/L (137-145); Total Bilirubin 0.4 mg/dL (0.2-1.3)
[2022-11-14] MEDS ORDERED: INSULIN REGULAR 100 UNIT/ML VIAL (IM/SQ) SQ ONE ×2 (14:49→16:01)
[2022-11-14 14:56] LABS: Appearance,Urine Clear (Clear); Bilirubin,Urine Negative (Negative); Blood,Urine Negative (Negative); Color,Urine Colorless; Glucose,Urine (UA) 4+ (Negative); Ketones,Urine Negative (Negative); Leukocyte Esterase,Urine Negative (Negative); Nitrite,Urine Negative (Negative); PH, Urine 5.5 (5.0-8.0); Protein,Urine Negative (Negative); Specific Gravity,Urine 1.007 (1.001-1.035); Urobilinogen,Urine <2.0 mg/dL (<2.0)
[2022-11-14 15:52] LABS: Glucose,Whole Blood 323 mg/dL (70-110)
[2022-11-14 17:19] LABS: Glucose,Whole Blood 251 mg/dL (70-110)
[2022-11-14] MEDS ORDERED: ACETAMINOPHEN TAB 325 MG TAB PO STA (18:09)
[2022-11-14 18:18] LABS: Glucose,Whole Blood 187 mg/dL (70-110)
[2022-11-14 18:20] VITALS: BP 105/60; PULSE 80
== END 2022-11-14 19:08 | disposition home or self-care (01) ==
LOC: EC 13:26
DX: E11.65 Type 2 diabetes mellitus with hyperglycemia (principal); I10 Essential (primary) hypertension; J45.909 Unspecified asthma, uncomplicated; Z87.891 Personal history of nicotine dependence; Z79.4 Long term (current) use of insulin; Z79.84 Long term (current) use of oral hypoglycemic drugs; Z79.82 Long term (current) use of aspirin; Z79.01 Long term (current) use of anticoagulants; Z79.899 Other long term (current) drug therapy; Z91.048 Other nonmedicinal substance allergy status
CPT/HCPCS: 36415; 71046; 80053; 81003; 82009; 83735; 84100; 85025; 93005; 96360; 99285

== ENCOUNTER → 2023-03-04 | Outpatient (CLI) | payer OTHER ==
[2023-03-04 15:59] LABS: ALT 20 U/L (8-44); AST 18 U/L (13-35); Albumin 4.1 d/dL (3.8-4.9); Albumin/Globulin Ratio 1.46 Ratio (1.60-3.17); Alkaline Phosphatase 68 U/L (41-126); BUN/Creat Ratio 22.73 Ratio (12.00-20.00); Blood Urea Nitrogen 34.1 mg/dL (9.0-27.0); Calcium 9.3 mg/dL (8.7-10.3); Carbon Dioxide 27.6 mmol/L (21.6-31.8); Chloride 100 mmol/L (96-109); Chol/HDL Ratio 3.68 Ratio; Globulin 2.8 d/dL (1.6-3.3); Glucose 135 mg/dL (70-110); LDL Cholesterol,Calculated 69.3 mg/dL (0.0-131.0); Potassium 3.7 mmol/L (3.5-5.5); Sodium 140 mmol/L (135-145); Total Bilirubin 0.3 mg/dL (0.3-1.2); Total Protein 6.9 d/dL (6.2-8.2)
[2023-03-04 18:21] LABS: Microalbumin Creatinine Ratio <90 mg/g Cr (0-30); Urine Creatinine 13.3 mg/dL (28.0-217.0)
== END | disposition home or self-care (01) ==
LOC: LABWHC1 10:08
PROVIDERS: ATTEND Internal Medicine Endocrinology, Diabetes & Metabolism
DX: E11.65 Type 2 diabetes mellitus with hyperglycemia (principal)
CPT/HCPCS: 36415; 80053; 80061; 82043; 82570; 83036; 84443

== ENCOUNTER → 2023-06-04 | Outpatient (CLI) | payer OTHER ==
[2023-06-04 17:17] LABS: ALT 17 U/L (8-44); AST 17 U/L (13-35); Albumin/Globulin Ratio 1.43 Ratio (1.60-3.17); Alkaline Phosphatase 78 U/L (41-126); BUN/Creat Ratio 21.56 Ratio (12.00-20.00); Blood Urea Nitrogen 38.8 mg/dL (9.0-27.0); Calcium 9.3 mg/dL (8.7-10.3); Carbon Dioxide 28.5 mmol/L (21.6-31.8); Chloride 98 mmol/L (96-109); Chol/HDL Ratio 3.44 Ratio; Globulin 2.8 d/dL (1.6-3.3); Glucose 104 mg/dL (70-110); LDL Cholesterol,Calculated 66.8 mg/dL (0.0-131.0); Potassium 3.8 mmol/L (3.5-5.5); Sodium 140 mmol/L (135-145); Total Bilirubin 0.4 mg/dL (0.3-1.2); Total Protein 6.8 d/dL (6.2-8.2); VLDL Calculation 18.98 mg/dL (5.00-40.00)
[2023-06-04 17:23] LABS: Microalbumin Creatinine Ratio <39 mg/g Cr (0-30); Urine Creatinine 30.6 mg/dL (28.0-217.0)
== END | disposition home or self-care (01) ==
LOC: LABWHC1 11:18
PROVIDERS: ATTEND Internal Medicine Endocrinology, Diabetes & Metabolism
DX: E11.65 Type 2 diabetes mellitus with hyperglycemia (principal)
CPT/HCPCS: 36415; 80053; 80061; 82043; 82570; 83036; 84443

== ENCOUNTER 2023-07-31 06:12 | Day surgery (SDC) | payer OTHER ==
[2023-07-29 14:17] VITALS: BMI 38.7
[2023-07-31] MEDS ORDERED: LACTATED RINGERS 1,000 ML IV SCH (06:42)
[2023-07-31 07:02] LABS: Glucose,Whole Blood 109 mg/dL (70-110)
[2023-07-31 07:16] VITALS: TEMP 97.5
[2023-07-31] MEDS ORDERED: MIDAZOLAM 2 MG/2 ML VIAL ONE (07:23)
[2023-07-31] MEDS ORDERED: PROPOFOL 10 MG/ML 20 ML VIAL IV ONE (07:23)
[2023-07-31] MEDS ORDERED: LIDOCAINE 1% INJ 10MG/ML (20 ML MDV) ONE (07:23)
--- NOTE | 2023-07-31 07:49 | P.PCN ---
Date of Procedure: 07/31/23 Procedure(s) Performed: Brief history: Patient is a pleasant 62-year-old white female scheduled for an elective upper endoscopy as well as colonoscopy as a part of evaluation of GERD/prior history of colon polyps. She is on Protonix 40 mg daily and doing well. Procedure performed: Esophagogastroduodenoscopy Colonoscopy with biopsy Preoperative diagnosis: GERD History of colon polyps Anesthesia: MAC Procedure: After informed consent was obtained from the patient was brought into the endoscopy unit and IV sedation was administered by anesthesia under continuous monitoring. Initially upper endoscopy was done. The Olympus GF 160 video endoscope was inserted inserted into the mouth and esophagus intubated without any difficulty and was gradually advanced into the stomach and duodenum and carefully examined. The bulb and second part of the duodenum appeared normal. The scope was then withdrawn into the stomach adequately insufflated with air and upon careful examination the antrum and body, cardia and fundus appeared normal. The scope was then withdrawn into the esophagus. The GE junction was located at 40 cm to the incisors. It appeared regular with no erythema erosions or ulcerations. Rest of the esophagus appeared normal. Patient tolerated the procedure well. At this time the patient continued to remain sedation. Initial digital rectal examination was normal. Olympus CF 160 video colonoscope was then inserted into the rectum and gradually advanced to the cecum without any difficulty. Careful examination was performed as the scope was gradually being withdrawn. The prep was excellent. The cecum, appeared normal. In the ascending colon there was a 4 mm polyp that was removed by cold biopsy. In the transverse colon there was a 3 mm polyp that was removed by cold biopsy. Rest of the ascending colon, transverse colon, descending colon, sigmoid colon and rectum appeared normal. Retroflexion was performed in the rectum and no lesions were noted. Patient tolerated the procedure well. Impression: 1. Upper endoscopy revealed normal-appearing esophagus stomach and duodenum with no evidence of peptic ulcer disease 2. Colonoscopy revealed 4 mm ascending colon polyp and a 3 mm transverse colon polyp status post cold biopsy Recommendations: Findings of this examination were discussed with the patient as well as her family. She was advised to continue with Protonix 40 mg daily and follow antireflux measures. Follow with the biopsy results and if the biopsy result adenoma she can have a repeat colonoscopy in 5 years.
[2023-07-31 08:30] VITALS: BP 105/54; PULSE 83; RESP 16
== END 2023-07-31 08:21 | disposition home or self-care (01) ==
LOC: ORWHC2ENDO 06:12
PROVIDERS: ATTEND Internal Medicine Gastroenterology
DX: K63.5 Polyp of colon (principal); K21.9 Gastro-esophageal reflux disease without esophagitis; Z86.010 Personal history of colon polyps; Z79.899 Other long term (current) drug therapy
CPT/HCPCS: 88305; 45380; 43235; J2250; J2001; J2704

== ENCOUNTER → 2023-09-07 | Outpatient (CLI) | payer OTHER ==
[2023-09-07 16:45] LABS: ALT 21 U/L (8-44); AST 18 U/L (13-35); Albumin 4.3 g/dL (3.8-4.9); Albumin/Globulin Ratio 1.48 Ratio (1.60-3.17); Alkaline Phosphatase 71 U/L (41-126); BUN/Creat Ratio 19.25 Ratio (12.00-20.00); Blood Urea Nitrogen 30.8 mg/dL (9.0-27.0); Calcium 10.1 mg/dL (8.7-10.3); Carbon Dioxide 26.3 mmol/L (21.6-31.8); Chloride 102 mmol/L (96-109); Chol/HDL Ratio 3.61 Ratio; Globulin 2.9 g/dL (1.6-3.3); Glucose 100 mg/dL (70-110); LDL Cholesterol,Calculated 81.6 mg/dL (0.0-131.0); Sodium 142 mmol/L (135-145); Total Bilirubin 0.3 mg/dL (0.3-1.2); Total Protein 7.2 g/dL (6.2-8.2)
[2023-09-07 18:29] LABS: Microalbumin Creatinine Ratio <24 mg/g Cr (0-30); Urine Creatinine 49.6 mg/dL (28.0-217.0)
== END | disposition home or self-care (01) ==
LOC: LABWHC1 11:46
PROVIDERS: ATTEND Internal Medicine Endocrinology, Diabetes & Metabolism
DX: E11.65 Type 2 diabetes mellitus with hyperglycemia (principal)
CPT/HCPCS: 36415; 80053; 80061; 82043; 82570; 83036; 84443

== ENCOUNTER 2024-03-16 12:07 | Emergency (ER) | payer OTHER ==
[2024-03-16 12:11] VITALS: RESP 18; TEMP 98.2
--- NOTE | 2024-03-16 13:08 | US ---
EXAMINATION TYPE: US venous doppler duplex LE RT DATE OF EXAM: 03/16/2024 12:32 PM COMPARISON: NONE CLINICAL INDICATION: Female, 63 years old with history of pain, swelling; rt leg pain this morning SIDE PERFORMED: Right TECHNIQUE: The lower extremity deep venous system is examined utilizing real time linear array sonog aany with graded compression, doppler sonography and color-flow sonography. VESSELS IMAGED: Common Femoral Vein Deep Femoral Vein Greater Saphenous Vein * Femoral Vein Popliteal Vein Right Leg: Negative for DVT exam limited by edema and body habitus IMPRESSION: 1. No diagnostic evidence of DVT as visualized.
--- NOTE | 2024-03-16 13:12 | ED ---
Extremity Problem HPI - General Chief complaint: Extremity Problem,Nontraumatic Stated complaint: R foot swelling/pain Time Seen by Provider: 03/16/24 12:13 Source: patient Mode of arrival: ambulatory Limitations: no limitations - History of Present Illness Initial comments: 63-year-old female with past medical history of A-fib, cardiomyopathy with defibrillator on Eliquis who presents emergency department for right lower extremity swelling. States that she woke up this morning and had pain which extends from her right hip down to her foot. She noted swelling. She states that as if her leg is going to "pop". She has been retaining fluid. Admits to some fluid in her primary however the right is worse. She has no history of DVT or PE. No history of arterial disease. She admits to redness and warmth. No open abrasions. No trauma. No history of cellulitis. She is on Eliquis and has been taking it twice daily as directed. She also takes Lasix 40 mg. No alleviating, precipitating or modifying factors - Related Data Home Medications Medication Instructions Recorded Confirmed Aspirin [Adult Low Dose Aspirin EC] 81 mg PO DAILY 05/11/19 07/31/23 Apixaban [Eliquis] 5 mg PO BID 01/07/22 07/31/23 Furosemide [Lasix] 40 mg PO DAILY 01/07/22 07/31/23 Metoprolol Succinate (ER) [Toprol 25 mg PO BID-W/MEALS 01/07/22 07/31/23 Xl] Pantoprazole Sodium 40 mg PO BID-W/MEALS 01/07/22 07/31/23 glipiZIDE XL [Glucotrol Xl] 10 mg PO DAILY 01/07/22 07/31/23 Ascorbic Acid [Vitamin C] 500 mg PO DAILY 04/23/22 07/31/23 Ferrous Sulfate [Feosol] 325 mg PO DAILY 04/23/22 07/31/23 Potassium Chloride [Potassium 5 meq PO BID 04/23/22 07/31/23 Chloride ER] Empagliflozin [Jardiance] 10 mg PO DAILY 11/14/22 07/31/23 Insulin Glargine,Hum.rec.anlog 22 units SQ DAILY 11/14/22 07/31/23 [Clay Garcia] Magnesium Oxide [Mag-Ox] 400 mg PO BID-W/MEALS 11/14/22 07/31/23 Vitamin B Complex 1 cap PO BID 11/14/22 07/31/23 lisinopriL [Zestril] 2.5 mg PO DAILY 11/14/22 07/31/23 metOLazone [Zaroxolyn] 5 mg PO DAILY 11/14/22 07/31/23 Semaglutide [Ozempic] 1 injection INJ WEEKLY 03/18/23 07/31/23 Calcium Acetate [Phoslo] 667 mg PO DAILY 07/29/23 07/31/23 Ergocalciferol [Vitamin D2 (1250 50,000 unit PO Q30D 07/29/23 07/31/23 Mcg = 71973 Iu)] allopurinoL 100 mg PO DAILY 07/29/23 07/31/23 Previous Rx's Medication Instructions Recorded Atorvastatin [Lipitor] 40 mg PO HS #90 tablet 05/13/19 Allergies Allergy/AdvReac Type Severity Reaction Status Date / Time adhesive tape Allergy Rash/Hives Verified 07/31/23 07:01 Review of Systems ROS Statement: Those systems with pertinent positive or pertinent negative responses have been documented in the HPI. ROS Other: All systems not noted in ROS Statement are negative. Past Medical History Past Medical History: Asthma, Diabetes Mellitus, GERD/Reflux, Hyperlipidemia, Hypertension Additional Past Medical History / Comment(s): See Dr Velásqeuz's H&P. Hx questionable GI Bleed , low hemoglobin, had blood transfusion, had Iron Infusion. Continues to follow with GI Dr to determine source of bleeding. Migraines, irregular heartbeat, Seasonal Asthma. Kidney disease. Having diarrhea. AICD History of Any Multi-Drug Resistant Organisms: None Reported Past Surgical History: AICD, Appendectomy, Cholecystectomy, Heart Catheterization, Hernia Repair, Hysterectomy, Orthopedic Surgery Additional Past Surgical History / Comment(s): Bunionectomy on left foot, left ACL repair., Colonoscopy. Past Anesthesia/Blood Transfusion Reactions: No Reported Reaction Additional Past Anesthesia/Blood Transfusion Reaction / Comment(s): Has received blood with no reaction. Type of Cardiac Device: AICD Device Placement Date:: 11/2019 Past Psychological History: No Psychological Hx Reported Smoking Status: Former smoker - Past Family History Father Family Medical History: Cancer Additional Family Medical History / Comment(s): Colon cancer. Mother Family Medical History: Cancer Additional Family Medical History / Comment(s): Breast cancer. General Exam Limitations: no limitations General appearance: alert, in no apparent distress Head exam: Present: atraumatic, normocephalic, normal inspection Eye exam: Present: normal appearance, PERRL, EOMI. Absent: scleral icterus, conjunctival injection, periorbital swelling ENT exam: Present: normal exam, mucous membranes moist Neck exam: Present: normal inspection. Absent: tenderness, meningismus, lymphadenopathy Respiratory exam: Present: normal lung sounds bilaterally. Absent: respiratory distress, wheezes, rales, rhonchi, stridor Cardiovascular Exam: Present: regular rate, normal rhythm, normal heart sounds. Absent: systolic murmur, diastolic murmur, rubs, gallop, clicks GI/Abdominal exam: Present: soft, normal bowel sounds. Absent: distended, tenderness, guarding, rebound, rigid Extremities exam: Present: full ROM, tenderness (She has significant tenderness to palpation of the arch of the foot which she states shoots up her leg. There is only mild edema appreciated. Left legs are warm to the touch equally. Palpable pulses), normal capillary refill, pedal edema (with the right minimally worse than the left). Absent: joint swelling, calf tenderness Back exam: Present: normal inspection Neurological exam: Present: alert, oriented X3, CN II-XII intact Psychiatric exam: Present: normal affect, normal mood Skin exam: Present: warm, dry, intact, normal color. Absent: rash Course Vital Signs 03/16/24 03/16/24 03/16/24 12:09 13:26 15:46 Temperature 98.2 F 98.2 F Pulse Rate 86 84 85 Respiratory 18 18 18 Rate Blood Pressure 128/76 128/77 110/72 O2 Sat by Pulse 100 99 99 Oximetry Medical Decision Making - Medical Decision Making Was pt. sent in by a medical professional or institution (, PA, STORE WORKER, urgent care, hospital, or fpc...) When possible be specific @ -No Did you speak to anyone other than the patient for history (EMS, parent, family, police, friend...)? What history was obtained from this source @ -No Did you review nursing and triage notes (agree or disagree)? Why? @ -I reviewed and agree with nursing and triage notes Were old charts reviewed (outside hosp., previous admission, EMS record, old EKG, old radiological studies, urgent care reports/EKG's, fpc records)? Report findings @ -No old charts were reviewed Differential Diagnosis (chest pain, altered mental status, abdominal pain women, abdominal pain men, vaginal bleeding, weakness, fever, dyspnea, syncope, headache, dizziness, GI bleed, back pain, seizure, CVA, palpatations, mental health, musculoskeletal)? @ -DVT, superficial thrombophlebitis, cellulitis, tendinitis, fasciitis EKG interpreted by me (3pts min.). @ -Not done X-rays interpreted by me (1pt min.). @ -Yes and demonstrates no acute process CT interpreted by me (1pt min.). @ -None done U/S interpreted by me (1pt. min.). @ -Yes and demonstrates no acute process What testing was considered but not performed or refused? (CT, X-rays, U/S, labs)? Why? @ -None What meds were considered but not given or refused? Why? @ -Antibiotics and pain meds however the patient states that she does not like to take medications if she does not have to Did you discuss the management of the patient with other professionals (professionals i.e. , PA, STORE WORKER, lab, RT, psych nurse, director of social services, paper finisher, teacher, airconditioning drafting officer, casework specialist)? Give summary @ -No Was smoking cessation discussed for >3mins.? @ -No Was critical care preformed (if so, how long)? @ -No Were there social determinants of health that impacted care today? How? (Homelessness, low income, unemployed, alcoholism, drug addiction, tr ansportation, low edu. Level, literacy, decrease access to med. care, custodial, rehab)? @ -No Was there de-escalation of care discussed even if they declined (Discuss DNR or withdrawal of care, Hospice)? DNR status @ -No What co-morbidities impacted this encounter? (DM, HTN, Smoking, COPD, CAD, Cancer, CVA, ARF, Chemo, Hep., AIDS, mental health diagnosis, sleep apnea, morbid obesity)? @ -A-fib on anticoagulation Was patient admitted / discharged? Hospital course, mention meds given and route, prescriptions, significant lab abnormalities, going to OR and other pertinent info. @ -Upon arrival patient seen and evaluated in room 4. Thorough history and physical exam was performed. Ultrasound demonstrates no DVT. X-ray was performed which demonstrates no acute process. Patient does have marked tenderness to palpation of the plantar surface of her foot. I did recommend placing an Rai wrap around the foot and treating the patient as a tendinitis. The redness is only mildly appreciated and lower extremities appear to be equal. Compartments are soft. Ultrasound was negative for DVT. I did offer to treat the patient with antibiotics and pain medications to see if these help her symp toms. Patient refused stating she only likes to take medications of apples only necessary. She is to rest, ice and elevate the extremity and return for any new or worsening symptoms Undiagnosed new problem with uncertain prognosis? @ -Yes Drug Therapy requiring intensive monitoring for toxicity (Heparin, Nitro, Insulin, Cardizem)? @ -No Were any procedures done? @ -No Diagnosis/symptom? @ -Acute right leg pain Acute, or Chronic, or Acute on Chronic? @ -Acute Uncomplicated (without systemic symptoms) or Complicated (systemic symptoms)? @ -Complicated Side effects of treatment? @ -No Exacerbation, Progression, or Severe Exacerbation? @ -No Poses a threat to life or bodily function? How? (Chest pain, USA, ID, pneumonia, PE, COPD, DKA, ARF, appy, cholecystitis, CVA, Diverticulitis, Homicidal, Suicidal, threat to staff... and all critical care pts) @ -No - Lab Data Result diagrams: 03/16/24 13:13 03/16/24 13:13 Lab Results 03/16/24 03/16/24 Range/Units 13:13 13:13 WBC 6.8 (3.8-10.6) k/uL RBC 4.37 (3.80-5.40) m/uL Hgb 12.8 (11.4-16.0) gm/dL Hct 39.9 (34.0-46.0) % MCV 91.3 (80.0-100.0) fL MCH 29.3 (25.0-35.0) pg MCHC 32.1 (31.0-37.0) g/dL RDW 13.8 (11.5-15.5) % Plt Count 281 (150-450) k/uL MPV 8.8 Neutrophils % 67 % Lymphocytes % 23 % Monocytes % 6 % Eosinophils % 2 % Basophils % 1 % Neutrophils # 4.5 (1.3-7.7) k/uL Lymphocytes # 1.6 (1.0-4.8) k/uL Monocytes # 0.4 (0-1.0) k/uL Eosinophils # 0.2 (0-0.7) k/uL Basophils # 0.1 (0-0.2) k/uL Sodium 138 (137-145) mmol/L Potassium 4.7 (3.5-5.1) mmol/L Chloride 104 (98-107) mmol/L Carbon Dioxide 30 (22-30) mmol/L Anion Gap 4 mmol/L BUN 24 H (7-17) mg/dL Creatinine 1.59 H (0.52-1.04) mg/dL Est GFR (CKD-EPI)AfAm 40 (>60 ml/min/1.73 sqM) Est GFR (CKD-EPI)NonAf 35 (>60 ml/min/1.73 sqM) Glucose 202 H (74-99) mg/dL Calcium 8.3 L (8.4-10.2) mg/dL Total Bilirubin 0.5 (0.2-1.3) mg/dL AST 33 (14-36) U/L ALT 39 H (4-34) U/L Alkaline Phosphatase 78 (38-126) U/L NT-Pro-B Natriuret Pep 509 pg/mL Total Protein 6.3 (6.3-8.2) g/dL Albumin 3.8 (3.5-5.0) g/dL Disposition Clinical Impression: Foot pain, Leg pain Disposition: HOME SELF-CARE Condition: Stable Instructions (If sedation given, give patient instructions): Plantar Fasciitis (ED) Additional Instructions: Please rest, ice and elevate the extremity. Purchase a tendinitis band if the rai wrap is not working well enough. Follow-up with the orthopedic office and your frit mixer. Return for any new or worsening symptoms Is patient prescribed a controlled substance at d/c from ED?: No Referrals: Nighat Paul FNPBC [REFERRING] - 1-2 days Time of Disposition: 15:27
[2024-03-16 13:23] LABS: Basophils # (A) 0.1 k/uL (0-0.2); Basophils % (A) 1 %; Eosinophils # (A) 0.2 k/uL (0-0.7); Eosinophils % (A) 2 %; HCT 39.9 % (34.0-46.0); HGB 12.8 gm/dL (11.4-16.0); Lymphocytes # (A) 1.6 k/uL (1.0-4.8); Lymphocytes % (A) 23 %; MCH 29.3 pg (25.0-35.0); MCHC 32.1 g/dL (31.0-37.0); MCV 91.3 fL (80.0-100.0); Mean Platelet Volume 8.8; Monocytes # (A) 0.4 k/uL (0-1.0); Monocytes % (A) 6 %; Neutrophils # (A) 4.5 k/uL (1.3-7.7); Neutrophils % (A) 67 %; Platelet Count 281 k/uL (150-450); RBC 4.37 m/uL (3.80-5.40); RDW 13.8 % (11.5-15.5); WBC 6.8 k/uL (3.8-10.6)
[2024-03-16 13:36] LABS: ALT 39 U/L (4-34); AST 33 U/L (14-36); African American GFR (CKD) 40 (>60 ml/min/1.73 sqM); Albumin 3.8 g/dL (3.5-5.0); Alkaline Phosphatase 78 U/L (38-126); Anion Gap 4 mmol/L; Blood Urea Nitrogen 24 mg/dL (7-17); Calcium 8.3 mg/dL (8.4-10.2); Carbon Dioxide 30 mmol/L (22-30); Chloride 104 mmol/L (98-107); Glucose 202 mg/dL (74-99); Non-African American GFR(CKD) 35 (>60 ml/min/1.73 sqM); Potassium 4.7 mmol/L (3.5-5.1); Sodium 138 mmol/L (137-145); Total Bilirubin 0.5 mg/dL (0.2-1.3); Total Protein 6.3 g/dL (6.3-8.2)
[2024-03-16 13:43] LABS: NT-Pro-B-Type Natriuretic Pept 509 pg/mL
--- NOTE | 2024-03-16 15:07 | XR ---
EXAMINATION TYPE: XR foot complete RT DATE OF EXAM: 03/16/2024 COMPARISON: NONE HISTORY: Pain TECHNIQUE: Three views are submitted. FINDINGS: The osseous structures are intact. There is no acute fracture or dislocation. Mild hypertrophic fi rst MTP joint arthropathy. Tiny calcaneal spurs. Mild soft tissue edema. IMPRESSION: 1. No acute fracture or dislocation. If symptoms persist, follow-up exam in 7 to 10 days could be ob tained. 2. Mild hypertrophic arthropathy first MTP.
[2024-03-16 15:47] VITALS: BP 110/72; PULSE 85
== END 2024-03-16 15:51 | disposition home or self-care (01) ==
LOC: EC 12:07
DX: R60.0 Localized edema (principal); M79.671 Pain in right foot; I48.91 Unspecified atrial fibrillation; Z79.01 Long term (current) use of anticoagulants; Z95.810 Presence of automatic (implantable) cardiac defibrillator; Z87.891 Personal history of nicotine dependence; Z91.09 Other allergy status, other than to drugs and biological substances
CPT/HCPCS: 36415; 80053; 83880; 85025; 99284